=== PATIENT | male | born 1975 | race Caucasian/White ===

== ENCOUNTER → 2017-09-27 | Outpatient (CLI) | payer OTHER ==
[~2017-09-27] MED LIST: PANTOPRAZOLE SO40 MG PO; SINCALIDE 3 MCG/VIAL INJ ONE
--- NOTE | 2017-09-27 20:59 | Diagnostic Imaging Report ---
Hepatobiliary Scan with Gallbladder Ejection Fraction Clinical information: Intermittent RUQ abdomen x 8 months Report: Following intravenous administration of 7 millicuries of Tc-99m mebrofenin, dynamic images of the abdomen in the anterior projection were obtained through 45 minutes. Sincalide (CCK analog) 2.5 micrograms was administered intravenously over 30 minutes with additional imaging for determination of gallbladder ejection fraction. Perfusion to the liver is normal. Extraction of tracer from the blood pool by the liver parenchyma is normal. Tracer is seen promptly within the biliary tract. The gallbladder begins to fill by 15 minutes post-injection of tracer and fills adequately. Tracer is seen in the small bowel by 5 minutes. The gallbladder ejection fraction with administration of sincalide is 96% (normal greater than 40%). Impression: 1. Filling of the gallbladder excludes the diagnosis of acute cystic duct obstruction/acute cholecystitis. 2. Normal gallbladder ejection fraction of 96% does not support the clinical diagnosis of chronic cholecystitis/gallbladder dyskinesia. Signed by: Dr. Olivia Williamson M.D. on 09/27/2017 8:56 PM
== END ==
LOC: NM 13:19
PROVIDERS: ATTEND Internal Medicine Gastroenterology
DX: R10.11 Right upper quadrant pain (principal); K82.8 Other specified diseases of gallbladder
CPT/HCPCS: 78227; A9537; J2805

== ENCOUNTER → 2017-10-03 | Day surgery (SDC) | payer OTHER ==
[~2017-10-03] MED LIST changes: +FENTANYL CITRATE/PF 100MCG/2 ML INJ ONE; +LIDOCAINE HCL 2% LOCAL INJ 5 ML SDV VIAL INJ ONE; +METOCLOPRAMIDE HCL 10 MG/2ML VIAL ONE; +MIDAZOLAM HCL 2 MG/2 ML VIAL ONE; +PANTOPRAZOLE SOD 40 MG TABEC ONE; +PROPOFOL IV EMULSION 10 MG/ML 50 ML VIAL ONE; -SINCALIDE 3 MCG/VIAL INJ ONE
--- OUTSIDE RECORDS SUMMARY | 2017-10-03 10:32 | XMS REPORT ---
Author Author [facility] Address Unknown Phone Unavailable Care Team Providers Care Senior Materials Analyst Name Role Phone DOTTY JAIN Unavailable Unavailable Problems This patient has no known problems. Allergies, Adverse Reactions, Alerts This patient has no known allergies or adverse reactions. Medications This patient has no known medications. Results Test Description Test Time Test Comments Text Results Atomic Results Result Comments HEPTOBILIARY W PHARM [place] [address] Patient Name: DONNA DORSEY MR #: [id number] : 1975 Age/Sex: 42/M Req #: [id number] Adm Physician: Ordered by: DOTTY JAIN MD Report #: [id number] Location: [place] Room/Bed: Procedure: [id number] NM/HEPTOBILIARY W PHARM Exam Date: 09/27/17 Exam Time: 1345 REPORT STATUS: Signed Hepatobiliary Scan with Gallbladder Ejection Fraction Clinical information: Intermittent RUQ abdomen x 8 months Report: Following intravenous administration of 7 millicuries of Tc-99m mebrofenin, dynamic images of the abdomen in the anterior projection were obtained through 45 minutes. Sincalide (CCK analog) 2.5 micrograms was administered intravenously over 30 minutes with additional imaging for determination of gallbladder ejection fraction. Perfusion to the liver is normal. Extraction of tracer from the blood pool by the liver parenchyma is normal. Tracer is seen promptly within the biliary tract. The gallbladder begins to fill by 15 minutes post-injection of tracer and fills adequately. Tracer is seen in the small bowel by 5 minutes. The gallbladder ejection fraction with administration of sincalide is 96% (normal greater than 40%). Impression: 1. Filling of the gallbladder excludes the diagnosis of acute cystic duct obstruction/acute cholecystitis. 2. Normal gallbladder ejection fraction of 96% does not support the clinical diagnosis of chronic cholecystitis/gallbladder dyskinesia. Signed by: Dr. June Clifford M.D. on 09/27/2017 8:56 PM Dictated By: JUNE CLIFFROD MD 55 Transcribed By: CHERYL on 09/27/172055 COPY TO: DOTTY JAIN MD
--- NOTE | 2017-12-11 02:41 | Operative Report ---
DATE OF PROCEDURE: October 03, 2017 PROCEDURE PERFORMED: Esophagogastroduodenoscopy note with biopsies and a snare polypectomy of a pyloric channel fold. REFERRING PHYSICIAN: Dr. Yissel Do INDICATIONS FOR EGD: Upper abdominal pain, heartburn, indigestion. MEDICATION: Patient was done under MAC. Please see anesthesiologist note. PROCEDURE IN DETAIL: With the patient in left lateral decubitus position, flexible fiberoptic Olympus gastroscope was introduced into the esophagus under direct visualization without any difficulty. There was some patchy erythema noted in distal esophagus. A minute ulcer was also noted in the distal esophagus without active bleeding or stigmata of recent hemorrhage. The scope was then advanced into the stomach traversing a small sliding hiatal hernia. There was a raised fold in the hiatal hernia sac and that was biopsied. Mucosa overlying the antrum and the body revealed some patchy erythema and low-grade to moderate edema, and biopsies were obtained and sent to stain for H. pylori. The pylorus was partially obstructed by a pyloric channel fold and that was removed per snare electrocautery. Mucosa overlying the duodenal bulb appeared to be within normal limits. There was somewhat of a scalloped fold noted in the proximal second portion of the duodenum that was biopsied. The scope was then withdrawn back into the stomach and retroflexed, and the mucosa overlying the fundus and the cardia appeared to be within normal limits. The scope was then straightened out. The stomach was decompressed. The scope was subsequently withdrawn. Patient tolerated the procedure well. IMPRESSION: 1. Erosive esophagitis. 2. Minute ulcer, distal esophagus. 3. Small sliding hiatal hernia. 4. Raised fold and hiatal hernia sac, biopsied. 5. Gastritis, biopsied. Biopsy sent to stain for Helicobacter pylori. 6. Pyloric channel fold partially obstructing pyloric channel, removed per snare electrocautery. 7. Rule out sprue. PLAN: Follow up histology. Initiate Protonix 1 p.o. q.a.m. a.cRemy Job#: [id number] cc:YISSEL PHELPS MD
== END | disposition home or self-care (01) ==
LOC: OR 10:30
PROVIDERS: ATTEND Internal Medicine Gastroenterology
DX: K29.70 Gastritis, unspecified, without bleeding (principal); K31.7 Polyp of stomach and duodenum; K29.80 Duodenitis without bleeding; K21.0 Gastro-esophageal reflux disease with esophagitis; K22.10 Ulcer of esophagus without bleeding; K44.9 Diaphragmatic hernia without obstruction or gangrene; K31.89 Other diseases of stomach and duodenum; K76.0 Fatty (change of) liver, not elsewhere classified; E78.5 Hyperlipidemia, unspecified; R03.0 Elevated blood-pressure reading, without diagnosis of hypertension; Z88.6 Allergy status to analgesic agent; F17.290 Nicotine dependence, other tobacco product, uncomplicated; Z01.810 Encounter for preprocedural cardiovascular examination; Z68.35 Body mass index [BMI] 35.0-35.9, adult
CPT/HCPCS: 43239; 43251; 93005; J2001; J2250

== ENCOUNTER 2017-10-04 08:06 | Observation (INO) | payer OTHER ==
[~2017-10-04] VITALS: Ht 177.8 cm; Wt 109.3 kg
[2017-10-04] MEDS ORDERED: HYDROMORPHONE 1MG/1ML INJ IV STA ×2 (08:49→09:02)
[2017-10-04] MEDS ORDERED: ONDANSETRON HCL INJ 2 MG/ML VIAL IV STA (08:49)
[2017-10-04 09:05] LABS: BASOPHILS # (AUTO) 0.1 (0.0-0.1); BASOPHILS % 0.4 % (0.0-1.0); EOSINOPHILS # (AUTO) 0.2 (0.0-0.4); EOSINOPHILS % 1.3 % (0.0-6.0); HEMATOCRIT 44.2 % (38.2-49.6); HEMOGLOBIN 14.4 g/dL (14.0-18.0); LYMPHOCYTES % 16.4 % (18.0-39.1); MEAN CORPUSCULAR HEMOGLOBIN 28.1 pg (28-32); MEAN CORPUSCULAR HGB CONC 32.6 g/dL (31-35); MEAN CORPUSCULAR VOLUME 86.3 fL (81-99); MONOCYTES # (AUTO) 0.7 (0.2-0.8); NEUTROPHILS # (AUTO) 9.2 (2.1-6.9); NEUTROPHILS % 75.5 % (38.7-80.0); PLATELET COUNT 165 x10e3/uL (140-360); RED BLOOD COUNT 5.12 x10e6/uL (4.3-5.7); RED CELL DISTRIBUTION WIDTH 13.2 % (11.7-14.4)
[2017-10-04 09:24] LABS: ALANINE AMINOTRANSFERASE 25 IU/L (0-55); ALBUMIN 3.9 g/dL (3.5-5.0); ALBUMIN/GLOBULIN RATIO 1.3 (0.8-2.0); ALKALINE PHOSPHATASE 91 IU/L (40-150); ANION GAP 10.1 mmol/L (8-16); BLOOD UREA NITROGEN 14 mg/dL (7-26); BUN/CREATININE RATIO 14 (6-25); CALCIUM 9.4 mg/dL (8.4-10.2); CARBON DIOXIDE 26 mmol/L (22-29); CHLORIDE 106 mmol/L (98-107); CREATINE KINASE 119 IU/L (30-200); CREATININE, SERUM 0.98 mg/dL (0.72-1.25); EST GLOMERULAR FILTRATION RATE > 60 ML/MIN (60-); GLUCOSE 102 mg/dL (74-118); LIPASE 23 U/L (8-78); POTASSIUM 4.1 mmol/L (3.5-5.1); SODIUM 138 mmol/L (136-145)
--- NOTE | 2017-10-04 09:55 | Diagnostic Imaging Report ---
PROCEDURE: CT ABDOMEN AND PELVIS WITHOUT CONTRAST TECHNIQUE: The abdomen and pelvis were scanned utilizing a multidetector helical scanner from the diaphragm to the lesser trochanter without IV or oral contrast material per renal stone protocol. Coronal and sagittal multiplanar reformations were obtained. DLP: 785.29 mGy-cm COMPARISON: None. INDICATIONS: LEFT FLANK PAIN FINDINGS: ABSENCE OF INTRAVENOUS CONTRAST DECREASES SENSITIVITY FOR DETECTION OF FOCAL LESIONS AND VASCULAR PATHOLOGY. LOWER THORAX: Normal. HEPATOBILIARY: No focal hepatic lesions. No biliary ductal dilatation. SPLEEN: No splenomegaly. PANCREAS: No focal masses or ductal dilatation. ADRENALS: No adrenal nodules. KIDNEYS/URETERS: No hydronephrosis, stones, or solid mass lesions. PELVIC ORGANS/BLADDER: Unremarkable. PERITONEUM / RETROPERITONEUM: No free air or fluid. LYMPH NODES: No lymphadenopathy. VESSELS: Unremarkable. GI TRACT: No distention or wall thickening. The appendix is normal. BONES AND SOFT TISSUES: Degenerative changes at L4-L5 with central endplate erosion and scalloping. 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 IMPRESSION: 1. No acute abnormality within the abdomen or pelvis. 2. No evidence of renal stones, hydronephrosis or perinephric fat stranding. 3. Degenerative changes L5-S1 with bilateral pars defect at L3. Wellington Hadley D.O. Dictated by: Wellington Hadley D.O. on 10/04/2017 at 9:55 Electronically approved by: Wellington Hadley D.O. on 10/04/2017 at 9:55
[2017-10-04] MEDS ORDERED: ALBUTEROL SULF 0.083% NEB SOLN 3 ML NEB NEB STA (10:40)
[2017-10-04] MEDS ORDERED: METHYLPREDNISOLONE SOD SUCC 125 MG/2ML VIAL IV STA (10:40)
[2017-10-04] MEDS ORDERED: IPRATROPIUM BROMIDE 0.02% 2.5 ML NEB NEB STA (10:40)
--- NOTE | 2017-10-04 11:00 | Diagnostic Imaging Report ---
PROCEDURE: CHEST SINGLE (PORTABLE) COMPARISON: None. INDICATIONS: ABDOMEN PAIN, SHORTNESS OF BREATH FINDINGS: LUNGS: No consolidations or edema. PLEURA: No effusions or pneumothorax. HEART \T\ MEDIASTINUM: The heart is within normal size-limits. BONES \T\ SOFT TISSUES: No acute findings. CONCLUSION: No acute thoracic abnormality. Wellington Hadley D.O. Dictated by: Wellington Hadley D.O. on 10/04/2017 at 11:01 Electronically approved by: Wellington Hadley D.O. on 10/04/2017 at 11:01
[2017-10-04 11:11] LABS: INR 0.99; PROTHROMBIN TIME 12.3 seconds (11.9-14.5)
[2017-10-04 11:12] LABS: BILIRUBIN,URINE NEGATIVE (NEGATIVE); CLARITY,URINE CLEAR (CLEAR); COLOR,URINE YELLOW (YELLOW); KETONES,URINE NEGATIVE (NEGATIVE); LEUKOCYTE ESTERASE ,URINE NEGATIVE (NEGATIVE); NITRITE,URINE NEGATIVE (NEGATIVE); PROTEIN,URINE DIPSTICK NEGATIVE (NEGATIVE); URINE UROBILINOGEN 0.2 mg/dL (0.2 - 1)
[2017-10-04] MEDS ORDERED: HYDROMORPHONE 20MG/ NS 100ML IV STA (11:25)
[2017-10-04] MEDS ORDERED: HYDROMORPHONE 1MG/1ML INJ IV ONE (11:45)
[2017-10-04] MEDS ORDERED: PANTOPRAZOLE SO40 MG PO (11:56)
[2017-10-04] MEDS ORDERED: SODIUM CHLORIDE FLUSH 10 ML SYR INJ PRN (12:15)
[2017-10-04 13:15] VITALS: BP 127/73
[2017-10-04] MEDS: HYDROMORPHONE 1MG/1ML INJ IV PRN ×2 (15:50→20:20)
[2017-10-04 16:32] VITALS: BP 127/73
[2017-10-04 17:50] LABS: CREATINE KINASE 101 IU/L (30-200)
[2017-10-04] MEDS ORDERED: DIPHENOXYLATE/ATROPINE TAB PO PRN (18:15)
[2017-10-04] MEDS ORDERED: ACETAMINOPHEN 325 MG TAB PO PRN (18:15)
--- NOTE | 2017-10-04 19:00 | History and Physical ---
HISTORY OF PRESENT ILLNESS: A 42-year-old male with no past medical history. He had an EGD yesterday. He apparently started complaining of chest pain in the back side of the chest that radiated to the front. He was also having vomiting and diarrhea. Patient was admitted to the hospital. CT of the abdomen was completely normal. Chest x-ray was normal. Blood pressure was stable. The only abnormality was the white blood count of 12,100. Dr. Richard Lott, gastroenterology, who did the procedure wanted to admit the patient to the hospital. REVIEW OF SYSTEMS: CARDIOVASCULAR: He had a pain that started in the back of the chest radiating to the left-side of the front part of the chest. No shortness of breath. RESPIRATORY: No shortness of breath. No cough. GASTROINTESTINAL: He did have nausea, vomiting and diarrhea. No blood in the stool. He complained of dark stools. GENITOURINARY: No frequency or dysuria. ALLERGIES: ASPIRIN. SOCIAL HISTORY: He does not smoke and he does not drink. PAST MEDICAL HISTORY: He claims is negative for any medical condition. PHYSICAL EXAMINATION: VITAL SIGNS: Blood pressure 123/73, temperature 97.0 degrees, heart rate 52 per minute, respiratory rate 18 per minute, oxygen saturation 98%. HEART: Shows regular rhythm. No murmur and no extra sounds. LUNGS: Clear bilaterally. ABDOMEN: Soft, nondistended, no visceromegaly. Minimal tenderness in the epigastric area. LABORATORY DATA: On the blood work we have BMP with a sodium 138, potassium 4.1, chloride 106. CO2 26. BUN 14, creatinine 0.98. Glucose 102. On the CBC white blood count 12.1, hemoglobin 14.4, hematocrit 44.2, platelet count 165,000. PT 12.3. INR 0.99. AST 19, ALT 25, total bilirubin 0.5, alkaline phosphatase 91. FINAL IMPRESSION: 1. Chest pain, which is atypical after an esophagogastroduodenoscopy. 2. Arrhythmia. 3. Obesity. 4. Vomiting. 5. Diarrhea. PLAN OF TREATMENT: Going to order CT of the chest. We are going to get a gastroenterology consult to see the patient also and we are going to give Zofran 4 mg IV q.4 h. as needed for vomiting. Imodium 2 mg every time he has diarrhea. Going to send a stool for C. difficile and cultures also. Job#: [id number] GH
[2017-10-04 20:00] VITALS: BP 133/67
[2017-10-04] MEDS: ONDANSETRON HCL INJ 2 MG/ML VIAL IV PRN (21:26)
[2017-10-04] MEDS ORDERED: SODIUM CHLORIDE 0.9% 50ML 50 ML ONE (21:33)
[2017-10-04] MEDS ORDERED: IOPAMIDOL 370 MG/ML 200 ML INFUS..BTL INJ ONE (21:34)
--- NOTE | 2017-10-04 22:02 | Diagnostic Imaging Report ---
EXAM: CT CHEST W DATE: 10/04/2017 6:00 PM INDICATION: Chest pain, left-sided COMPARISON: None TECHNIQUE: Multidetector CT scanning of the chest was performed. Coronal and sagittal multiplanar reformations were obtained. IV Contrast: 100 ml Isovue 370/300 FINDINGS: LUNGS AND PLEURA: No consolidations or edema. No effusions or pneumothorax. HEART, MEDIASTINUM, VESSELS: Normal heart size, great vessel caliber. No pericardial effusion. No adenopathy. UPPER ABDOMEN: Hepatic steatosis. MUSCULOSKELETAL: No acute findings. IMPRESSION: No acute abnormality. Signed by: Dr Enedina Serrano MD on 10/04/2017 9:58 PM
[2017-10-05 00:20] VITALS: BP 110/65
[2017-10-05 04:05] VITALS: BP 130/62
[2017-10-05] MEDS ORDERED: PANTOPRAZOLE 40 MG 10ML VIAL IV STA (04:29)
[2017-10-05 07:00] VITALS: BP 125/62
[2017-10-05 07:22] LABS: CREATINE KINASE 98 IU/L (30-200)
[2017-10-05 07:53] LABS: CHOL/HDL RATIO 6.2 (3.9-4.7)
[2017-10-05 08:26] VITALS: BP 125/62
[2017-10-05] MEDS: ONDANSETRON HCL INJ 2 MG/ML VIAL IV PRN (09:41)
[2017-10-05] MEDS: HYDROMORPHONE 1MG/1ML INJ IV PRN (09:41)
[2017-10-05 12:25] VITALS: BP 124/59
--- NOTE | 2017-10-05 14:27 | Diagnostic Imaging Report ---
EXAMINATION: MRI of the thoracic spine without contrast HISTORY: Left-sided chest wall pain and back pain COMPARISON: None. TECHNIQUE: Sagittal T1 without contrast, T2, and STIR; axial T2. Coronal T2. FINDINGS: Curvature: Normal kyphosis. Vertebrae: No evidence of recent fracture, infection, or neoplasm. Discs: Normal thoracic spine disc. Partially visualized disc osteophyte at C6-C7 with mild left foraminal narrowing. Spinal canal: No mass or abnormal blood vessels. Spinal cord: Normal size and signal intensity. Foramina: Unremarkable. Paraspinal soft tissues: Unremarkable. Incidentally noted is small subcutaneous sebaceous retention retention cyst in the right posterior cervicothoracic region. Proximal ribs: No abnormal signal intensity. IMPRESSION: Normal thoracic spine MRI. Signed by: Dr. Silvia Workman M.D. on 10/05/2017 2:24 PM
[2017-10-05] MEDS ORDERED: PANTOPRAZOLE 40 MG 10ML VIAL IV SCH (17:00)
--- NOTE | 2017-10-05 17:20 | Discharge Summary ---
Patient is a 42-year-old male who had an EGD done and started complaining of chest pain. Patient had a CT of the chest and CT of the abdomen, all of them negative for any significant abnormality. He had a thoracic spine MRI, results are pending. The patient can be discharged home today. I told the patient that he needs to have a stress test done by Dr. Romero, dice table person, in a week. EKG did not show really any significance except for sinus arrhythmia. No evidence of any ST segment elevation or depression or T-wave inversions, but since he has a family history of coronary artery disease, I told the patient it is better to have it done. He does not need to stay in the hospital for that. PHYSICAL EXAMINATION VITAL SIGNS: Blood pressure 124/59, temperature 98.3, heart rate 57 per minute, respirations 18 per minute, oxygen saturation 98%. HEART: Regular rhythm. No murmur. No extra sounds. LUNGS: Clear bilaterally. ABDOMEN: Soft. EXTREMITIES: Show no evidence of cyanosis, edema or trauma. FINAL IMPRESSION: Back pain after an esophagogastroduodenoscopy. History of gastroesophageal reflux disease and sludge on the gallbladder. EGD history of gastroesophageal Bret disease and/or the gallbladder. As I said, a CT of the abdomen and pelvis and CT of the chest completely negative. The EKG is unremarkable except for sinus arrhythmia. Patient going home today as long as the MRI of the thoracic spine is normal. As I said, I told the patient also to do a stress test as an outpatient by cardiology. The chest pain is very atypical. It is in the back of the chest. It is sharp in nature, comes back and forth. As I said, all of the tests have been negative. Very unlikely to be coronary artery disease, but I told the patient since he has one brother with coronary artery disease to have the after evaluation by cardiology which can be done as an outpatient. JOHN MARCUS MD Job#: [id number] GH
== END 2017-10-05 15:27 | disposition home or self-care (01) ==
LOC: ER 08:06 → ERHOLD 13:43 → IMCU 14:54
PROVIDERS: ADMIT Internal Medicine; ATTEND Internal Medicine
DX: R07.89 Other chest pain (principal); I49.9 Cardiac arrhythmia, unspecified; E66.9 Obesity, unspecified; R19.7 Diarrhea, unspecified; R11.10 Vomiting, unspecified; Z68.35 Body mass index [BMI] 35.0-35.9, adult; K21.9 Gastro-esophageal reflux disease without esophagitis; K82.8 Other specified diseases of gallbladder; M54.89 Other dorsalgia
CPT/HCPCS: 36415 ×2; 71045; 71260; 72146; 74176; 80053; 80061; 81001; 82150; 82550 ×2; 82553 ×2; 83690; 84484 ×2; 85025; 85379; 85610; 93005; 99284; G0378 ×2; J1170 ×2; J2405 ×2; Q9967

== ENCOUNTER 2017-10-07 08:03 | Inpatient (IN) | payer OTHER ==
[~2017-10-07] VITALS: Ht 177.8 cm; Wt 109.3 kg
[~2017-10-07 08:03] MED LIST changes: -FENTANYL CITRATE/PF 100MCG/2 ML INJ ONE; -LIDOCAINE HCL 2% LOCAL INJ 5 ML SDV VIAL INJ ONE; -METOCLOPRAMIDE HCL 10 MG/2ML VIAL ONE; -MIDAZOLAM HCL 2 MG/2 ML VIAL ONE; -PANTOPRAZOLE SOD 40 MG TABEC ONE; -PROPOFOL IV EMULSION 10 MG/ML 50 ML VIAL ONE
--- OUTSIDE RECORDS SUMMARY | 2017-10-07 08:09 | XMS REPORT | Continuity of Care Document ---
Author Author [facility] Organization [facility] Address [address] [place] [address] Phone Unavailable Care Team Providers Care Broker Associate Name Role Phone GEORGE JAIN MD PCP Insurance Providers Guarantor Galen Dorsey Address [address] [place] [address] Email [email or web address] [email or web address] [facility] Policy Number [id number] Subscriber's Name Galen Dorsey Relationship 18 Self / Same As Patient Group Number [id number] Group Name [facility] Effective Date 07/09/07 Advance Directives Directive Response Recorded Date/Time Does the patient have an advance directive? No 10/04/17 3:52pm If yes, is advance directive on file with [facility]? No 10/04/17 3:52pm If not on file with [facility] will patient provide a copy? No 10/04/17 3:52pm Do you have a Directive to Physician? No 10/04/17 9:36am Do you have a Medical Power of Checker Product Design? No 10/04/17 9:36am Do you have an out of hospital Do Not Resuscitate Order? No 10/04/17 9:36am Do you have any special needs we should be aware of? No 10/04/17 9:36am Do you have a support person here with you today? Yes 10/04/17 9:36am Did patient receive Notice of Privacy Practices? Yes 10/04/17 9:36am Did patient receive patient rights and responsibilities? Yes 10/04/17 9:36am Problems Medical Problem Onset Date Status Left-sided chest wall pain Unknown Medications Current Home Medications Medication Dose Units Route Directions Days Qty Instructions Start Date Pantoprazole Sodium (Protonix) 40 Mg Tablet.dr 40 Mg Oral Twice Daily Before Meals Social History Social History Problem Response Recorded Date/Time Onset Date Status Hx Psychiatric Problems No 10/04/2017 3:52pm Not Applicable Not Applicable Hx Eating Disorder No 10/04/2017 3:52pm Not Applicable Not Applicable Hx Substance Use Disorder No 10/04/2017 3:52pm Not Applicable Not Applicable Hx Depression No 10/04/2017 3:52pm Not Applicable Not Applicable Hx Alcohol Use No 10/04/2017 3:52pm Not Applicable Not Applicable Hx Substance Use Treatment No 10/04/2017 3:52pm Not Applicable Not Applicable Hx Physical Abuse No 10/04/2017 3:52pm Not Applicable Not Applicable Smoking Status Start Date Stop Date Never Smoker Hospital Discharge Instructions No hospital discharge instruction information available. Plan of Care Discharge Date 10/05/17 3:27pm Disposition HOME, SELF-CARE Instructions/Education Provided Chest Pain - Noncardiac Prescriptions See Medication Section Referrals JOHN MARCUS MD (Internal Medicine) Order Date: 1 Week Entered Date: 10/05/2017 3:03pm Address: [address] [place] [address] JESSICA ESCOBEDO MD (Cardiology) Order Date: 1 Week Entered Date: 10/05/2017 3:03pm Address: [address] [place] [address] Functional Status Query Response Date Recorded Assistive Devices None October 04, 2017 1:15pm Ambulation Ability Independent October 04, 2017 1:15pm Toileting Ability Independent October 04, 2017 1:15pm Allergies, Adverse Reactions, Alerts Allergen Type Severity Reaction Status Last Updated Aspirin Allergy Mild Active 08/06/12 Immunizations No immunization information available. Vital Signs Acute Vital Signs Vital Response Date/Time Temperature (Fahrenheit) 98.3 degrees F (97.6 - 99.5) 10/05/2017 12:25pm Pulse Pulse Rate (adult) 57 bpm (60 - 90) 10/05/2017 12:25pm Respiratory Rate 18 bpm (12 - 24) 10/05/2017 12:25pm Blood Pressure 124/59 mm Hg 10/05/2017 12:25pm Height 5 ft 10 in 10/04/2017 4:33pm Weight 241 lb 10/05/2017 8:27am Body Mass Index 34.6 kg/m^2 10/05/2017 8:27am Results Laboratory Results Test Name Result Units Flags Reference Collection Date/Time Result Date/ Time Comments White Blood Count 12.19 x10e3/uL H 4.8-10.8 10/04/2017 8:43am 2017 9:08am Red Blood Count 5.12 x10e6/uL 4.3-5.7 10/04/2017 8:43am 10/04/2017 9: 08am Hemoglobin 14.4 g/dL 14.0-18.0 10/04/2017 8:43am 10/04/2017 9:08am Hematocrit 44.2 % 38.2-49.6 10/04/2017 8:43am 10/04/2017 9:08am Mean Corpuscular Volume 86.3 fL 81-99 10/04/2017 8:43am 10/04/2017 9: 08am Mean Corpuscular Hemoglobin 28.1 pg 28-32 10/04/2017 8:43am 10/04/2017 9:08am Mean Corpuscular Hemoglobin Concent 32.6 g/dL 31-35 10/04/2017 8:43am 10/04/2017 9:08am Red Cell Distribution Width 13.2 % 11.7-14.4 10/04/2017 8:43am 2017 9:08am Platelet Count 165 x10e3/uL 140-360 10/04/2017 8:43am 10/04/2017 9: 08am Neutrophils (%) (Auto) 75.5 % 38.7-80.0 10/04/2017 8:4310/04/2017 9: 08am Lymphocytes (%) (Auto) 16.4 % L 18.0-39.1 10/04/2017 8:4310/04/2017 9 :08am Monocytes (%) (Auto) 6.0 % 4.4-11.3 10/04/2017 8:43am 10/04/2017 9: 08am Eosinophils (%) (Auto) 1.3 % 0.0-6.0 10/04/2017 8:4310/04/2017 9: 08am Basophils (%) (Auto) 0.4 % 0.0-1.0 10/04/2017 8:4310/04/2017 9:08am IM GRANULOCYTES % 0.4 % 0.0-1.0 10/04/2017 8:4310/04/2017 9:08am Neutrophils # (Auto) 9.2 H 2.1-6.9 10/04/2017 8:4310/04/2017 9: 08am Lymphocytes # (Auto) 2.0 1.0-3.2 10/04/2017 8:4310/04/2017 9:08am Monocytes # (Auto) 0.7 0.2-0.8 10/04/2017 8:43am 10/04/2017 9:08am Eosinophils # (Auto) 0.2 0.0-0.4 10/04/2017 8:4310/04/2017 9:08am Basophils # (Auto) 0.1 0.0-0.1 10/04/2017 8:4310/04/2017 9:08am Absolute Immature Granulocyte (auto 0.05 x10e3/uL 0-0.1 10/04/2017 8: 4310/04/2017 9:08am Prothrombin Time 12.3 seconds 11.9-14.5 10/04/2017 8:4310/04/2017 11 :12am Prothromb Time International Ratio 0.99 10/04/2017 8:432017 11:12am Oral Anticoagulant Therapy INR Values: 1. Low Intensity Therapy 1.5 - 2.0 2. Moderate Intensity Therapy 2.0 - 3.0 3. High Intensity Therapy(1) 2.5 - 3.5 4. High Intensity Therapy(2) 3.0 - 4.0 5. Panic Value INR > 5.0 D-Dimer Quantitative (PE/DVT) < 100 ng/mL 0-400 10/04/2017 8:43am 10/04 9:27am The Triage D-Dimer Test has not been evaluated for use as sole evidence for the presence or absence of PE or DVT. As with all in vitro diagnostic tests, the test results should be interpreted by the physician in conjunction with clinical findings and other test results. Test results are reported in D-dimer units. Urine Color YELLOW YELLOW 10/04/2017 8:49am 10/04/2017 11:12am Urine Clarity CLEAR CLEAR 10/04/2017 8:49am 10/04/2017 11:12am Urine Specific [place] 1.015 1.010-1.025 10/04/2017 8:49am 2017 11:12am Urine pH 8 H 5 - 7 10/04/2017 8:49am 10/04/2017 11:12am Urine Leukocyte Esterase NEGATIVE NEGATIVE 10/04/2017 8:49am 2017 11:12am Urine Nitrite NEGATIVE NEGATIVE 10/04/2017 8:49am 10/04/2017 11:12am Urine Protein NEGATIVE NEGATIVE 10/04/2017 8:49am 10/04/2017 11:12am Urine Glucose (UA) NEGATIVE NEGATIVE 10/04/2017 8:49am 10/04/2017 11: 12am Urine Ketones NEGATIVE NEGATIVE 10/04/2017 8:49am 10/04/2017 11:12am Urine Urobilinogen 0.2 mg/dL 0.2 - 1 10/04/2017 8:49am 10/04/2017 11: 12am Urine Bilirubin NEGATIVE NEGATIVE 10/04/2017 8:49am 10/04/2017 11: 12am Urine Blood NEGATIVE NEGATIVE 10/04/2017 8:49am 10/04/2017 11:12am Urine WBC NONE /HPF 0-5 10/04/2017 8:49am 10/04/2017 11:32am Urine RBC NONE /HPF 0-5 10/04/2017 8:49am 10/04/2017 11:32am Urine Bacteria NONE /HPF NONE 10/04/2017 8:49am 10/04/2017 11:32am Urine Epithelial Cells NONE /LPF NONE 10/04/2017 8:49am 10/04/2017 11: 32am Sodium Level 138 mmol/L 136-145 10/04/2017 8:43am 10/04/2017 9:27am Potassium Level 4.1 mmol/L 3.5-5.1 10/04/2017 8:43am 10/04/2017 9:27am Chloride Level 106 mmol/L 98-107 10/04/2017 8:43am 10/04/2017 9:27am Carbon Dioxide Level 26 mmol/L -10/04/2017 8:43am 10/04/2017 9: 27am Anion Gap 10.1 mmol/L 8-16 10/04/2017 8:43am 10/04/2017 9:27am Blood Urea Nitrogen 14 mg/dL 7-10/04/2017 8:43am 10/04/2017 9:27am Creatinine 0.98 mg/dL 0.72-1.25 10/04/2017 8:43am 10/04/2017 9:27am BUN/Creatinine Ratio 14 6-10/04/2017 8:43am 10/04/2017 9:27am Estimat Glomerular Filtration Rate > 60 ML/MIN 60- 10/04/2017 8:43am 9:27am Ranges were taken from the National Kidney Disease Education Program and the National Kidney Foundation literature. Reference ranges: 60 or greater: Normal 16-59 (for 3 consecutive months): Chronic kidney disease 15 or less: Kidney failure Glucose Level 102 mg/dL 74-118 10/04/2017 8:43am 10/04/2017 9:27am Calcium Level 9.4 mg/dL 8.4-10.2 10/04/2017 8:43am 10/04/2017 9:27am Total Bilirubin 0.5 mg/dL 0.2-1.2 10/04/2017 8:43am 10/04/2017 9:27am Aspartate Amino Transf (AST/SGOT) 19 IU/L 5-34 10/04/2017 8:43am 2017 9:27am Alanine Aminotransferase (ALT/SGPT) 25 IU/L 0-55 10/04/2017 8:43am 9:27am Total Protein 7.0 g/dL 6.5-8.1 10/04/2017 8:43am 10/04/2017 9:27am Albumin 3.9 g/dL 3.5-5.0 10/04/2017 8:43am 10/04/2017 9:27am Globulin 3.1 g/dL 2.3-3.5 10/04/2017 8:43am 10/04/2017 9:27am Albumin/Globulin Ratio 1.3 0.8-2.0 10/04/2017 8:43am 10/04/2017 9: 27am Alkaline Phosphatase 91 IU/L 40-150 10/04/2017 8:43am 10/04/2017 9: 27am Triglycerides Level 216 MG/DL H 0-149 10/05/2017 6:10am 10/05/2017 7: 55am Cholesterol Level 273 MD/DL H 0-199 10/05/2017 6:10am 10/05/2017 7:55am Less than 200 mg/dL Low Risk 201 - 239 mg/dL Borderline Risk 240 mg/dl and greater High Risk LDL Cholesterol 186 MG/DL H 60-130 10/05/2017 6:10am 10/05/2017 7:55am HDL Cholesterol 44 MG/DL 40-60 10/05/2017 6:10am 10/05/2017 7:55am Cholesterol/HDL Ratio 6.2 H 3.9-4.7 10/05/2017 6:10am 10/05/2017 7: 55am Creatine Kinase 98 IU/L 30-200 10/05/2017 6:10am 10/05/2017 7:24am Creatine Kinase MB 1.00 ng/mL 0-5.0 10/05/2017 6:10am 10/05/2017 7: 31am Troponin I < 0.001 ng/mL 0-0.300 10/05/2017 6:10am 10/05/2017 7:31am Amylase Level 80 U/L 25-125 10/04/2017 8:43am 10/04/2017 9:09am Lipase 23 U/L 8-78 10/04/2017 8:43am 10/04/2017 9:27am Procedures Procedure Status Date Provider(s) EGD with biopsy Completed 10/03/17 DOTTY JAIN MD EGD (esophagogastroduodenoscopy) Completed 10/03/[address] of abdomen and pelvis without contrast Active 10/04/17 WOODY FORDE MD Computed tomography of chest with contrast Active 10/04/17 JOHN MARCUS MD Magnetic resonance imaging of thoracic spine without contrast Active DOTTY JAIN MD Encounters Encounter Location Arrival/Admit Date Discharge/Depart Date Attending Provider Discharged Inpatient (obs) [facility] 10/04/17 1:43pm 3:27pm JOHN MARCUS MD Registered Surgical Day Care [facility] 10/03/17 10:30am DOTTY JAIN MD Registered Clinic [facility] 09/27/17 1:19pm DOTTY JAIN MD
[2017-10-07] MEDS ORDERED: ONDANSETRON HCL INJ 2 MG/ML VIAL IV STA (08:30)
[2017-10-07] MEDS ORDERED: SODIUM CHLORIDE 0.9% 1000ML 1,000 ML IV STA (08:30)
[2017-10-07] MEDS ORDERED: PANTOPRAZOLE 40 MG 10ML VIAL IV ONE (09:00)
[2017-10-07 09:36] LABS: BASOPHILS % 0.4 % (0.0-1.0); EOSINOPHILS # (AUTO) 0.1 (0.0-0.4); EOSINOPHILS % 1.2 % (0.0-6.0); HEMATOCRIT 41.3 % (38.2-49.6); HEMOGLOBIN 13.6 g/dL (14.0-18.0); LYMPHOCYTES # (AUTO) 1.7 (1.0-3.2); LYMPHOCYTES % 20.7 % (18.0-39.1); MEAN CORPUSCULAR HEMOGLOBIN 28.3 pg (28-32); MEAN CORPUSCULAR HGB CONC 32.9 g/dL (31-35); MONOCYTES # (AUTO) 0.6 (0.2-0.8); MONOCYTES % 7.7 % (4.4-11.3); NEUTROPHILS # (AUTO) 5.6 (2.1-6.9); NEUTROPHILS % 69.5 % (38.7-80.0); PLATELET COUNT 175 x10e3/uL (140-360); RED CELL DISTRIBUTION WIDTH 13.2 % (11.7-14.4)
[2017-10-07 09:55] LABS: AMYLASE 57 U/L (25-125); ANION GAP 11.9 mmol/L (8-16); BLOOD UREA NITROGEN 34 mg/dL (7-26); BUN/CREATININE RATIO 38 (6-25); CALCIUM 9.3 mg/dL (8.4-10.2); CARBON DIOXIDE 26 mmol/L (22-29); CHLORIDE 102 mmol/L (98-107); CREATININE, SERUM 0.89 mg/dL (0.72-1.25); EST GLOMERULAR FILTRATION RATE > 60 ML/MIN (60-); GLUCOSE 102 mg/dL (74-118); LIPASE 17 U/L (8-78); POTASSIUM 3.9 mmol/L (3.5-5.1); SODIUM 136 mmol/L (136-145)
--- NOTE | 2017-10-07 10:19 | Diagnostic Imaging Report ---
EXAMINATION: CHEST SINGLE (PORTABLE) INDICATION: \S\LEFT SIDE CP AFTER EGD, HEMATEMESIS, MELENA \[id number] \S\0934 \S.br\ COMPARISON: 10/04/2017 FINDINGS: AP view TUBES and LINES: None. LUNGS: Limited by body habitus. Lungs are well inflated. Lungs are clear. There is no evidence of pneumonia or pulmonary edema. PLEURA: No pleural effusion or pneumothorax. HEART AND MEDIASTINUM: The cardiomediastinal silhouette is unremarkable. BONES AND SOFT TISSUES: No acute osseous lesion. Soft tissues are unremarkable. UPPER ABDOMEN: No free air under the diaphragm. IMPRESSION: No acute thoracic abnormality. Signed by: Dr. Luis Fernando Mcneal MD on 10/07/2017 10:16 AM
[2017-10-07 10:20] LABS: INR 1.14; PROTHROMBIN TIME 13.7 seconds (11.9-14.5)
[2017-10-07 10:21] LABS: PARTIAL THROMBOPLASTIN TIME 25.6 seconds (23.8-35.5)
[2017-10-07] MEDS ORDERED: SODIUM CHLORIDE 0.9% 250ML 250 ML IV ONE (11:30)
[2017-10-07] MEDS ORDERED: ACETAMINOPHEN 325 MG TAB PO PRN (14:30)
[2017-10-07] MEDS ORDERED: ONDANSETRON HCL INJ 2 MG/ML VIAL IV PRN (14:30)
[2017-10-07 14:38] LABS: HEMATOCRIT 37.1 % (38.2-49.6); HEMOGLOBIN 11.9 g/dL (14.0-18.0)
[2017-10-07 14:56] LABS: CREATINE KINASE 133 IU/L (30-200)
--- NOTE | 2017-10-07 15:25 | History and Physical ---
HPI: The patient is a 42-year-old male recently discharged from [facility] due to chest pain that happened after an EGD. CT of the chest and CT of the abdomen did not show any significant abnormality. I told the patient to follow up with cardiology for a possible stress test, came here vomiting black materials and having diarrhea with black materials also. So, he is admitted with possible diagnosis of acute GI bleed. He already had an EGD done by Dr. Richard Lott a few days ago. REVIEW OF SYSTEMS: CARDIOVASCULAR: No chest pain. No palpitation. RESPIRATORY: No shortness of breath. No cough. GASTROINTESTINAL: He had nausea and vomiting with vomiting tarry-like material and also the diarrhea with black stools also. GENITOURINARY: No frequency. No dysuria. ALLERGIES: HE IS ALLERGIC TO ASPIRIN. SOCIAL HISTORY: He claims that he does not smoke, does not drink. PAST MEDICAL HISTORY: Positive for gastritis. PHYSICAL EXAMINATION: VITAL SIGNS: Blood pressure 108/66, temperature 98.1, heart rate 67 per minute, respiratory rate is 20 per minute, oxygen saturation 97%. HEART: Regular rhythm. Normal S1 and S2 sounds. LUNGS: Clear bilaterally. ABDOMEN: Soft. Minimal epigastric tenderness. No distention or visceromegaly. EXTREMITIES: No evidence of cyanosis, edema, or trauma. IMAGING DATA: He also had a chest x-ray done in the emergency room, which showed no acute thoracic abnormalities. FINAL IMPRESSION 1. Most likely upper gastrointestinal bleed. 2. Chest pain. 3. Vomiting. 4. Diarrhea. PLAN OF TREATMENT: We are going to continue with Protonix 40 mg IV twice a day and Zofran 4 mg IV every 4 hours as needed for vomiting. Continue on D5 normal saline at 80 mL an hour. Clear liquid diet until seen by Dr. Richard Lott, tool straightener. We are going to continue monitoring H and H q.6 hours. Job#: [id number] VAS
[2017-10-07] MEDS: PANTOPRAZOL 40MG/SOD CHL 0.9% 50 ML IV SCH ×2 (16:41→20:53)
[2017-10-07] MEDS: DEXTROSE 5%/0.9% SOD CHL 1,000 ML IV SCH (16:41)
[2017-10-07] MEDS ORDERED: PANTOPRAZOLE 40 MG 10ML VIAL IV SCH (17:00)
[2017-10-07 18:03] VITALS: BP 149/79
[2017-10-07 20:00] VITALS: BP 128/60
[2017-10-07 20:53] VITALS: BP 128/60
[2017-10-08] VITALS (7 sets, daily range): BP systolic 119–134; BP diastolic 57–76
[2017-10-08 00:16] LABS: HEMATOCRIT 33.8 % (38.2-49.6); HEMOGLOBIN 10.9 g/dL (14.0-18.0)
[2017-10-08] MEDS: DEXTROSE 5%/0.9% SOD CHL 1,000 ML IV SCH ×3 (00:30→10:13)
[2017-10-08] MEDS: PANTOPRAZOL 40MG/SOD CHL 0.9% 50 ML IV SCH ×5 (02:02→21:43)
[2017-10-08 07:26] LABS: HEMATOCRIT 33.5 % (38.2-49.6); HEMOGLOBIN 10.8 g/dL (14.0-18.0)
[2017-10-08 07:53] LABS: BLOOD UREA NITROGEN 21 mg/dL (7-26); BUN/CREATININE RATIO 23 (6-25); CALCIUM 8.6 mg/dL (8.4-10.2); CARBON DIOXIDE 25 mmol/L (22-29); CHLORIDE 108 mmol/L (98-107); EST GLOMERULAR FILTRATION RATE > 60 ML/MIN (60-); GLUCOSE 108 mg/dL (74-118); SODIUM 137 mmol/L (136-145)
[2017-10-08 08:31] LABS: CREATINE KINASE MB 0.8 ng/mL (0-5.0)
--- NOTE | 2017-10-08 11:08 | Operative Report ---
DATE OF PROCEDURE: October 08, 2017 REFERRING PHYSICIAN: Dr. John Marcus PROCEDURE PERFORMED: Esophagogastroduodenoscopy with fulguration with a 7-Hungarian Gold Probe. INDICATIONS FOR EGD: History of hematemesis. MEDICATION: Patient was done under MAC. Please see anesthesiologist's note. PROCEDURE: With the patient in the left lateral decubitus position, the flexible fiberoptic Olympus gastroscope was introduced into the esophagus under direct visualization without any difficulty. There was a friable nodule noted at the GE junction that bled after being brushed with the scope, and that was fulgurated with excellent hemostasis with size 7-Hungarian Gold Probe. The scope was then advanced with ease into the stomach, traversing a small sliding hiatal hernia. Mucosa overlying the antrum and the body revealed some patchy areas of erythema. The pylorus was intubated with ease, and the scope was advanced all the way to the 2nd portion of the duodenum. The scope was then withdrawn slowly. Mucosa overlying the proximal 2nd portion and the duodenal bulb appeared to be within normal limits. There was an ulcer noted in the pyloric channel reflecting the site where the polypoid lesion was removed per snare electrocautery. There was no active bleeding or stigmata of recent hemorrhage. The scope was then withdrawn back into the stomach and retroflexed. The mucosa overlying the fundus and the cardia appeared to be within normal limits. The scope was then straightened out. The stomach was decompressed. Scope was subsequently withdrawn. Patient tolerated the procedure well. IMPRESSION 1. Friable nodule at gastroesophageal junction, which bled after being brushed with the scope, fulgurated with excellent hemostasis with size 7-Hungarian heater probe. 2. Small sliding hiatal hernia. 3. Gastritis. PLAN: Follow H and H. Continue Protonix 40 mg 1 p.o. a.c. b.i.d. Job#: [id number] cc:JOHN MARCUS MD
[2017-10-08 11:47] LABS: HEMATOCRIT 32.7 % (38.2-49.6); HEMOGLOBIN 10.6 g/dL (14.0-18.0)
--- NOTE | 2017-10-08 12:59 | Consultation ---
DATE OF CONSULTATION: October 08, 2017 CARDIOLOGY CONSULTATION REQUESTING PHYSICIAN: Dr. Fernando Phelan. REASON FOR CONSULTATION: Chest pain. HISTORY OF PRESENT ILLNESS: This is a 42-year-old male with a history of hyperlipidemia, who presented with a GI bleed. He states that he began having chest pain last after he had an EGD. The pain is left-sided and patient described it as someone trying to get out of his chest. It is 1-2/10 at baseline and occasionally worsens to 9/10 in severity. The pain lasts seconds and it is associated with nausea. There is no radiation, shortness of breath, or diaphoresis. He denies any exacerbation with activity. He denies any edema, orthopnea, or PND. He was scheduled to be evaluated by cardiology as an outpatient; however, he began having hematemesis and melena, for which she was admitted for acute GI bleeding. He is now status post EGD with fulguration of bleeding at a friable nodule at the GE junction. He was also noted have an ulcer in the pyloric channel where a polypoid lesion was removed. REVIEW OF SYSTEMS: Negative except as per HPI. PAST MEDICAL HISTORY: Hyperlipidemia. PAST SURGICAL HISTORY: Right rotator cuff repair. SOCIAL HISTORY: He quit smoking in May 2017. He drinks alcohol occasionally. Denies any illicit drugs. FAMILY HISTORY: Pertinent for mother with myocardial infarction in her 70s and brother with a myocardial infarction in his 40s. PHYSICAL EXAMINATION VITAL SIGNS: Temperature 97.4 degrees, pulse 62, respiratory rate 18, blood pressure 127/57, oxygen saturation 98% on room air. GENERAL: Awake, alert, well-developed, well-nourished man, in no acute distress. HEENT: Normocephalic, atraumatic. Pupils equal. No scleral icterus. NECK: Supple. No thyromegaly or cervical lymphadenopathy. No carotid bruits. LUNGS: Clear to auscultation bilaterally. No wheezes or crackles. CARDIOVASCULAR: Normal rate, regular rhythm. No murmur. Normal S1 and S2. ABDOMEN: Soft, nontender. EXTREMITIES: No edema. NEUROLOGIC: Nonfocal exam. LABS: WBC 8.03, hemoglobin 13.6, hematocrit 41.3, platelets 175. Sodium 137, potassium 4, chloride 108, CO2 of 25, BUN 21, creatinine 0.9. Troponin 0.004. IMPRESSION 1. Upper gastrointestinal bleed. 2. Chest pain. 3. Hyperlipidemia. RECOMMENDATIONS: Trend cardiac enzymes. Obtain echocardiogram. Given the recent GI bleeding requiring fulguration, no antiplatelet therapy at this time. Discussed need for outpatient stress test with patient once he recovers from this current illness. Thank you for this consult. We will continue to follow. Job#: [id number] VAS
[2017-10-08] MEDS ORDERED: PROPOFOL IV EMULSION 10 MG/ML 50 ML VIAL ONE (17:20)
[2017-10-08] MEDS ORDERED: LIDOCAINE HCL 2% LOCAL INJ 5 ML SDV VIAL INJ ONE (17:20)
--- NOTE | 2017-10-08 17:57 | Discharge Summary ---
HISTORY OF PRESENT ILLNESS: Patient is 42-year-old male who had a past medical history positive for an EGD done recently. He was admitted with chest pain at some point and workup was essentially unremarkable. Patient was sent home. He had a CAT scan of the abdomen and CAT scan of the chest which showed no significant abnormalities for chest pain. Patient was told to see a lieutenant governor as an outpatient. Patient was admitted here to [facility] because of black stools and vomiting black material. He had an EGD done by Dr. Richard Lott, who found a friable nodule at the gastroesophageal junction which bleed after being brushed with the scope. He was fulgurated with excellent hemoptysis with a size 7-Slovak probe. He also had a hiatal hernia and gastritis. Hemoglobin and hematocrit remained stable. He might go home tomorrow if okay with Dr. Richard Lott. PHYSICAL EXAM: HEART: Regular rhythm. No murmur. No extra sounds. LUNGS: Clear bilaterally. ABDOMEN: Soft. Nontender, nondistended, no visceromegaly. EXTREMITIES: Show no evidence of cyanosis, edema or trauma. LABORATORY STUDIES: BMP sodium 137, potassium 4.0, chloride 108. CO2 25, BUN 21. Creatinine 0.80. Glucose 108, and a CBC was a white blood count 8.03, hemoglobin 10.6, hematocrit 32.7, platelet count 175,000. PT 13.7. INR 1.14. PTT. 25.6. FINAL IMPRESSION 1. Upper GI bleed secondary to nodule on the gastroesophageal junction. 2. Small hiatal hernia and gastritis. PLAN OF TREATMENT: He is going to continue Protonix 40 mg p.o. twice a day tomorrow. We are going to repeat the CBC tomorrow. If hemoglobin and hematocrit are stable, then he can go home and follow up with Dr. Richard Lott as an outpatient. JOHN MARCUS MD Job#: [id number]
[2017-10-08] MEDS ORDERED: FENTANYL CITRATE/PF 100MCG/2 ML INJ ONE (18:16)
[2017-10-08] MEDS ORDERED: MIDAZOLAM HCL 2 MG/2 ML VIAL ONE (18:16)
[2017-10-08 19:21] LABS: HEMOGLOBIN 10.2 g/dL (14.0-18.0)
[2017-10-09] VITALS: BP 115/58
[2017-10-09 00:32] LABS: HEMATOCRIT 30.8 % (38.2-49.6)
[2017-10-09] MEDS: PANTOPRAZOL 40MG/SOD CHL 0.9% 50 ML IV SCH (03:05)
[2017-10-09 04:00] VITALS: BP 119/66
[2017-10-09 07:06] LABS: HEMATOCRIT 31.1 % (38.2-49.6)
[2017-10-09 08:27] VITALS: BP 126/59
== END 2017-10-09 09:52 | disposition home or self-care (01) | DRG 393 ==
LOC: ER 08:47 → ERHOLD 11:58 → OBSVTOIN 13:16 → MED/SURG 16:40
PROVIDERS: ADMIT Internal Medicine; ATTEND Internal Medicine
PROC: 0DB78ZX Excision of Stomach, Pylorus, Via Natural or Artificial Opening Endoscopic, Diagnostic (ICD-10-PCS; 2017-10-08)
PROC: 0D548ZZ Destruction of Esophagogastric Junction, Via Natural or Artificial Opening Endoscopic (ICD-10-PCS; principal; 2017-10-08 12:30)
DX: K31.7 Polyp of stomach and duodenum (principal); K25.4 Chronic or unspecified gastric ulcer with hemorrhage; K29.70 Gastritis, unspecified, without bleeding; K44.9 Diaphragmatic hernia without obstruction or gangrene; K21.0 Gastro-esophageal reflux disease with esophagitis; Z87.891 Personal history of nicotine dependence
CPT/HCPCS: 36415; 71045; 80048; 82150; 82550; 82553; 83690; 84484; 85014; 85018; 85025; 85610; 85730; 86850; 86900; 86920; 93005; 96366; 99284; G0378; J2001; J2250; J2405; J7030; J7042

== ENCOUNTER → 2017-10-11 | Outpatient (CLI) | payer OTHER ==
--- NOTE | 2017-10-11 11:40 | Diagnostic Imaging Report ---
PROCEDURE:US GALLBLADDER COMPARISON:CT chest 10/04/2017. INDICATIONS:ABDOMINAL PAIN TECHNIQUE: Gilmore-scale and color doppler transverse and longitudinal images of the right upper quadrant of the abdomen were obtained. FINDINGS: Liver: 16 cm in length in the right midclavicular line. Diffusely increased parenchymal echogenicity. No focal mass. No intrahepatic biliary ductal dilatation. Main portal vein: 0.9 cm in caliber. Hepatopedal flow. Gallbladder: 5 mm adherent echogenic polypoid lesion projecting into the gallbladder lumen without acoustic shadowing. No wall thickening or pericholecystic fluid. Common Bile Duct: 0.3 cm in caliber Sonographic Alves's sign: Reported as Negative Right kidney: 12 cm in length. Normal renal cortical echogenicity. No solid masses or hydronephrosis. Pancreas: The visualized portions are unremarkable. Inferior vena cava: Patent Aorta: Non-aneurysmal Ascites: None in the right upper quadrant of the abdomen. CONCLUSION: 5 mm gallbladder polyp should be assessed for stability by followup ultrasound in one year. No sonographic evidence of cholelithiasis or acute cholecystitis. Hepatic steatosis. Dictated by: Lj Horn M.D. on 10/11/2017 at 11:40 Electronically approved by: Lj Horn M.D. on 10/11/2017 at 11:40
== END ==
LOC: US 10:49
PROVIDERS: ATTEND Internal Medicine Gastroenterology
DX: R10.9 Unspecified abdominal pain (principal)
CPT/HCPCS: 76705

== ENCOUNTER → 2017-10-15 | Day surgery (SDC) | payer OTHER ==
[~2017-10-15] MED LIST changes: +FENTANYL CITRATE/PF 100MCG/2 ML INJ ONE; +LIDOCAINE HCL 2% LOCAL INJ 5 ML SDV VIAL INJ ONE; +MIDAZOLAM HCL 2 MG/2 ML VIAL ONE; +PROPOFOL IV EMULSION 10 MG/ML 50 ML VIAL ONE
--- OUTSIDE RECORDS SUMMARY | 2017-10-15 11:07 | XMS REPORT | Continuity of Care Document ---
Author Author [facility] Organization [facility] Address [address] [place] [address] Phone Unavailable Care Team Providers Care Floorleader Name Role Phone GEORGE LOTT MD PCP Insurance Providers Guarantor Galen Dorsey Address [address] [place] [address] Email [email or web address] Payer r Ppo Policy Number [id number] Subscriber's Name Galen Dorsey Relationship 18 Self / Same As Patient Group Number [id number] Group Name [facility] Effective Date 07 Advance Directives Directive Response Recorded Date/Time Does the patient have an advance directive? No 10/07/17 4:57pm If yes, is advance directive on file with [facility]? No 10/07/17 4:57pm If not on file with [facility] will patient provide a copy? No 10/07/17 4:57pm Do you have a Directive to Physician? No 10/07/17 11:52am Do you have a Medical Power of [place]? No 10/07/17 11:52am Do you have an out of hospital Do Not Resuscitate Order? No 10/07/17 11:52am Do you have any special needs we should be aware of? No 10/07/17 11:52am Do you have a support person here with you today? No 10/07/17 11:52am Did patient receive Notice of Privacy Practices? Yes 10/07/17 11:52am Did patient receive patient rights and responsibilities? Yes 10/07/17 11:52am Problems Medical Problem Onset Date Status Left-sided chest wall pain Unknown Medications Current Home Medications Medication Dose Units Route Directions Days Qty Instructions Start Date Pantoprazole Sodium (Protonix) 40 Mg Tablet.dr 40 Mg Oral Twice Daily Before Meals Social History Social History Problem Response Recorded Date/Time Onset Date Status Hx Psychiatric Problems No 10/07/2017 4:57pm Not Applicable Not Applicable Hx Eating Disorder No 10/07/2017 4:57pm Not Applicable Not Applicable Hx Substance Use Disorder No 10/07/2017 4:57pm Not Applicable Not Applicable Hx Depression No 10/07/2017 4:57pm Not Applicable Not Applicable Hx Alcohol Use No 10/07/2017 4:57pm Not Applicable Not Applicable Hx Substance Use Treatment No 10/07/2017 4:57pm Not Applicable Not Applicable Hx Physical Abuse No 10/07/2017 4:57pm Not Applicable Not Applicable Smoking Status Start Date Stop Date Former smoker Hospital Discharge Instructions No hospital discharge instruction information available. Plan of Care Discharge Date 10/09/17 9:52am Disposition HOME, SELF-CARE Instructions/Education Provided Soft Diet GI Bleeding Prescriptions See Medication Section Referrals DOTTY LOTT MD (Gastroenterology) Entered Date: 10/09/2017 9:18am Address: [address] [place] [address] [address] [place] [address] JOHN MARCUS MD (Internal Medicine) Entered Date: 10/09/2017 9:18am Address: [address] [place] [address] [address] [place] [address] Additional Instructions/Education soft diet, bland diet. avoid tomatos/ tomato based foods, chocolate, sodas, caffeine, spicy foods. call your primary care doctor today to set up a follow up appointment, call dr. Lott's office today to set up a follow up appointment. your physician may want to recheck your bloodwork at your next visit (Blood count) Functional Status Query Response Date Recorded Assistive Devices None October 07, 2017 6:03pm Ambulation Ability Independent October 07, 2017 6:03pm Toileting Ability Independent October 09, 2017 9:16am Allergies, Adverse Reactions, Alerts Allergen Type Severity Reaction Status Last Updated Aspirin Allergy Mild Active 10/07/17 Immunizations No immunization information available. Vital Signs Acute Vital Signs Vital Response Date/Time Temperature (Fahrenheit) 97.1 degrees F (97.6 - 99.5) 10/09/2017 8:27am Pulse Pulse Rate (adult) 69 bpm (60 - 90) 10/09/2017 8:27am Respiratory Rate 18 bpm (12 - 24) 10/09/2017 8:27am Blood Pressure 126/59 mm Hg 10/09/2017 8:27am Height 5 ft 10 in 10/07/2017 8:15am Weight 241 lb 10/07/2017 8:15am Body Mass Index 34.6 kg/m^2 10/07/2017 4:57pm Results Laboratory Results Test Name Result Units Flags Reference Collection Date/Time Result Date/ Time Comments D-Dimer Quantitative (PE/DVT) < 100 ng/mL 0-400 [...] CLEAR 10/04/2017 8:49am 10/04/2017 11:12am Urine Specific [place] 1.015 1.010-1.025 10/04/2017 8:49am 2017 11:12am Urine [...] /LPF NONE 10/04/2017 8:49am 10/04/2017 11: 32am Total Bilirubin 0.5 mg/dL 0.2-1.2 10/04/2017 8:43am [...] H 3.9-4.7 10/05/2017 6:10am 10/05/2017 7: 55am White Blood Count 8.03 x10e3/uL 4.8-10.8 10/07/2017 8:49am 10/07/2017 9 :39am Red Blood Count 4.80 x10e6/uL 4.3-5.7 10/07/2017 8:49am 10/07/2017 9: 39am Hemoglobin 10.0 g/dL L 14.0-18.0 10/09/2017 6:50am 10/09/2017 7:09am Hematocrit 31.1 % L 38.2-49.6 10/09/2017 6:50am 10/09/2017 7:09am Mean Corpuscular Volume 86.0 fL 81-99 10/07/2017 8:49am 10/07/2017 9: 39am Mean Corpuscular Hemoglobin 28.3 pg 28-32 10/07/2017 8:49am 10/07/2017 9:39am Mean Corpuscular Hemoglobin Concent 32.9 g/dL 31-35 10/07/2017 8:49am 10/07/2017 9:39am Red Cell Distribution Width 13.2 % 11.7-14.4 10/07/2017 8:49am 2017 9:39am Platelet Count 175 x10e3/uL 140-360 10/07/2017 8:49am 10/07/2017 9: 39am Neutrophils (%) (Auto) 69.5 % 38.7-80.0 10/07/2017 8:49am 10/07/2017 9: 39am Lymphocytes (%) (Auto) 20.7 % 18.0-39.1 10/07/2017 8:49am 10/07/2017 9: 39am Monocytes (%) (Auto) 7.7 % 4.4-11.3 10/07/2017 8:4910/07/2017 9: 39am Eosinophils (%) (Auto) 1.2 % 0.0-6.0 10/07/2017 8:4910/07/2017 9: 39am Basophils (%) (Auto) 0.4 % 0.0-1.0 10/07/2017 8:4910/07/2017 9:39am IM GRANULOCYTES % 0.5 % 0.0-1.0 10/07/2017 8:10/07/2017 9:39am Neutrophils # (Auto) 5.6 2.1-6.9 10/07/2017 8:49am 10/07/2017 9:39am Lymphocytes # (Auto) 1.7 1.0-3.2 10/07/2017 8:4910/07/2017 9:39am Monocytes # (Auto) 0.6 0.2-0.8 10/07/2017 8:49am 10/07/2017 9:39am Eosinophils # (Auto) 0.1 0.0-0.4 10/07/2017 8:10/07/2017 9:39am Basophils # (Auto) 0.0 0.0-0.1 10/07/2017 8:10/07/2017 9:39am Absolute Immature Granulocyte (auto 0.04 x10e3/uL 0-0.1 10/07/2017 8: 4910/07/2017 9:39am Prothrombin Time 13.7 seconds 11.9-14.5 10/07/2017 8:4910/07/2017 10 :21am Prothromb Time International Ratio 1.14 10/07/2017 8:2017 10:21am Oral Anticoagulant Therapy INR Values: 1. Low Intensity Therapy 1.5 - 2.0 2. Moderate Intensity Therapy 2.0 - 3.0 3. High Intensity Therapy(1) 2.5 - 3.5 4. High Intensity Therapy(2) 3.0 - 4.0 5. Panic Value INR > 5.0 Activated Partial Thromboplast Time 25.6 seconds 23.8-35.5 10/07/2017 8: 49am 10/07/2017 10:24am Sodium Level 137 mmol/L 136-145 10/08/2017 6:50am 10/08/2017 7:55am Potassium Level 4.0 mmol/L 3.5-5.1 10/08/2017 6:50am 10/08/2017 7:55am Chloride Level 108 mmol/L H 98-107 10/08/2017 6:50am 10/08/2017 7:55am Carbon Dioxide Level 25 mmol/L 22-29 10/08/2017 6:50am 10/08/2017 7: 55am Anion Gap 8.0 mmol/L 8-16 10/08/2017 6:50am 10/08/2017 7:55am Blood Urea Nitrogen 21 mg/dL 7-10/08/2017 6:50am 10/08/2017 7:55am Creatinine 0.90 mg/dL 0.72-1.25 10/08/2017 6:50am 10/08/2017 7:55am BUN/Creatinine Ratio 23 6-25 10/08/2017 6:50am 10/08/2017 7:55am Estimat Glomerular Filtration Rate > 60 ML/MIN 60- 10/08/2017 6:50am 7:55am Ranges were taken from the National Kidney Disease Education Program and the National Kidney Foundation literature. Reference ranges: 60 or greater: Normal 16-59 (for 3 consecutive months): Chronic kidney disease 15 or less: Kidney failure Glucose Level 108 mg/dL 74-118 10/08/2017 6:50am 10/08/2017 7:55am Calcium Level 8.6 mg/dL 8.4-10.2 10/08/2017 6:50am 10/08/2017 7:55am Creatine Kinase 99 IU/L 30-200 10/08/2017 6:50am 10/08/2017 8:24am Creatine Kinase MB 0.80 ng/mL 0-5.0 10/08/2017 6:50am 10/08/2017 8: 32am Troponin I 0.004 ng/mL 0-0.300 10/08/2017 6:50am 10/08/2017 8:32am Amylase Level 57 U/L 25-125 10/07/2017 8:49am 10/07/2017 9:56am Lipase 17 U/L 8-78 10/07/2017 8:49am 10/07/2017 9:56am [facility] [address] [place] [address] Patient Name: GALEN DORSEY MR # :[id number] : 1975 Age/Sex: 42/M Admit Physician: JOHN MARCUS MD Admit Date: 10/07/17 Location/Room/Bed: [facility] [address] Discharge Date: Report: Discharge Summary HISTORY OF PRESENT ILLNESS: Patient is 42-year-old male who had a past medical history positive for an EGD done recently. He was admitted with chest pain at some point and workup was essentially unremarkable. Patient was sent home. He had a CAT scan of the abdomen and CAT scan of the chest which showed no significant abnormalities for chest pain. Patient was told to see a active directory engineer as an outpatient. Patient was admitted here to [facility] because of black stools and vomiting black material. He had an EGD done by Dr. Dotty Lott, who found a friable nodule at the gastroesophageal junction which bleed after being brushed with the scope. He was fulgurated with excellent hemoptysis with a size 7-Turkish probe. He also had a hiatal hernia and gastritis. Hemoglobin and hematocrit remained stable. He might go home tomorrow if okay with Dr. Dotty Lott. PHYSICAL EXAM: HEART: Regular rhythm. No murmur. No extra sounds. LUNGS: Clear bilaterally. ABDOMEN: Soft. Nontender, nondistended, no visceromegaly. EXTREMITIES: Show no evidence of cyanosis, edema or trauma. LABORATORY STUDIES: BMP sodium 137, potassium 4.0, chloride 108. CO2 25, BUN 21. Creatinine 0.80. Glucose 108, and a CBC was a white blood count 8.03, hemoglobin 10.6, hematocrit 32.7, platelet count 175,000. PT 13.7. INR 1.14. PTT. 25.6. FINAL IMPRESSION 1. Upper GI bleed secondary to nodule on the gastroesophageal junction. 2. Small hiatal hernia and gastritis. PLAN OF TREATMENT: He is going to continue Protonix 40 mg p.o. twice a day tomorrow. We are going to repeat the CBC tomorrow. If hemoglobin and hematocrit are stable, then he can go home and follow up with Dr. Dotty Lott as an outpatient. JOHN MARCUS MD Job#: [id number] GH Dictated By: JOHN MARCUS MD Transcribed By: EDS on 10/08/17 <Electronically signed by JOHN MARCUS MD>10/08/17 1819 Procedures Procedure Status Date Provider(s) EGD with biopsy Completed 10/03/17 DOTTY LOTT MD EGD (esophagogastroduodenoscopy) Completed 10/03/17 DOTTY LOTT MD EGD with biopsy Completed 10/08/[address] of abdomen and pelvis without contrast Active 10/04/17 WOODY FORDE MD Computed tomography of chest with contrast Active 10/04/17 JOHN MARCUS MD Magnetic resonance imaging of thoracic spine without contrast Active DOTTY LOTT MD Encounters Encounter Location Arrival/Admit Date Discharge/Depart Date Attending Provider Discharged [facility]obs[facility] [place] 10/07/17 11:58am 9:52am JOHN MARCUS MD Discharged Inpatient (obs) [facility] 10/04/17 1:43pm 3:27pm JOHN MARCUS MD Registered Surgical Day Care [facility] 10/03/17 10:30am DOTTY LOTT MD Registered Clinic [facility] 09/27/17 1:19pm DOTTY LOTT MD
--- NOTE | 2017-10-15 15:17 | Operative Report ---
DATE OF PROCEDURE: October 15, 2017 REFERRING PHYSICIAN: Dr. Marcus PROCEDURE PERFORMED: Colonoscopy and polypectomy. INDICATIONS FOR COLONOSCOPY: Abdominal pain. MEDICATION: Patient was done under MAC. Please see anesthesiologist's note. PROCEDURE: With the patient in the left lateral decubitus position, the flexible fiberoptic Olympus colonoscope was inserted into the rectum with ease and advanced all the way to the cecum. The scope was then withdrawn slowly. Mucosa overlying the cecum appeared to be within normal limits. One polyp was snared and 1 polyp was hot biopsied from the ascending colon. Two polyps were hot biopsied and 1 polyp was snared from the transverse colon. One polyp was hot biopsied and 3 polyps were snared from the descending colon. One polyp was snared and 3 polyps were hot biopsied from the sigmoid colon. Three polyps were hot biopsied from the rectum. The scope was then retroflexed into the distal rectum, and small internal hemorrhoids were noted, none of which was actively bleeding. The scope was then straightened out. The rectosigmoid area as well as the distal rectal area were decompressed. Scope was subsequently withdrawn. Patient tolerated the procedure well. IMPRESSION 1. Ascending colon polyps times 2, one hot and one snared. 2. Transverse colon polyps times 3. One was removed per snare electrocautery and 2 were hot biopsied. 3. Descending colon polyps times 4. One was hot biopsied and 3 were snared. 4. Sigmoid colon polyps times 4. Three were hot biopsied and 1 was snared. 5. Rectal polyps times 3, hot biopsied. 6. Internal hemorrhoids, none actively bleeding. PLAN: Follow up histology. Initiate high-fiber, low-fat diet. Initiate high-fiber supplement. Patient will need a followup colonoscopy in 1 year. Job#: [id number] cc:JOHN MARCUS MD
== END | disposition home or self-care (01) ==
LOC: OR 11:05
PROVIDERS: ATTEND Internal Medicine Gastroenterology
DX: R10.9 Unspecified abdominal pain (principal); D12.2 Benign neoplasm of ascending colon; D12.3 Benign neoplasm of transverse colon; D12.4 Benign neoplasm of descending colon; K62.1 Rectal polyp; K64.8 Other hemorrhoids; Z88.6 Allergy status to analgesic agent
CPT/HCPCS: 45384; 45385; 84152; J2001; J2250; 45378